=== PATIENT | female | born 1965 | race Caucasian/White ===

== ENCOUNTER → 2017-04-11 | Outpatient (CLI) | payer OTHER ==
--- NOTE | 2017-04-11 16:36 | DIAGNOSTIC IMAGING REPORT ---
MRI LUMBAR SPINE W/O CONTRAST CLINICAL HISTORY: Back pain x6 months. FAMILY HISTORY OF MALIGNANCY. TECHNIQUE: Sagittal and axial T1, T2 and STIR images were obtained. COMPARISON STUDY: No previous studies for comparison. OBSERVATIONS: The vertebral bodies and posterior elements appear intact. There is no abnormal bony signal present to suggest a marrow replacement process. L1-2: No disc protrusions or extrusions. No evidence of spinal canal or neural foraminal compromise. L2-3: No disc protrusions or extrusions. No evidence of spinal canal or neural foraminal compromise. L3-4: No disc protrusions or extrusions. No evidence of spinal canal or neural foraminal compromise. L4-5: No disc protrusions or extrusions. No evidence of spinal canal or neural foraminal compromise. L5-S1: No disc protrusions or extrusions. No evidence of spinal canal or neural foraminal compromise. The conus medullaris and cauda equina appear normal. IMPRESSION: Normal MRI of the lumbar spine for age Electronically signed by: Ghulam Mckeon M.D. 04/11/2017 4:35 PM Dictated Date/Time: 04/11/2017 4:32 PM
== END | disposition home or self-care (01) ==
LOC: C.MRIBC 15:01
PROVIDERS: ATTEND Physician Assistant
DX: Z80.9 Family history of malignant neoplasm, unspecified (principal); M54.5 Low back pain

== ENCOUNTER → 2017-05-01 | Outpatient (CLI) | payer OTHER ==
--- NOTE | 2017-05-01 09:08 | DIAGNOSTIC IMAGING REPORT ---
ULTRASOUND OF THE PELVIS CLINICAL HISTORY: Abdominal bloating. COMPARISON STUDY: No priors. TECHNIQUE: Real-time, grayscale, and color flow sonography of the pelvis is performed both transabdominally and endovaginally. Images are reviewed in the transverse and longitudinal planes. FINDINGS: Uterus: The uterus is normal in size and echotexture, measuring 8.0 x 3.3 x 4.2 cm. Small fibroids are noted. The largest is within the posterior body and measures up to 1.4 cm. Endometrium: The endometrium is normal in appearance, and the endometrial stripe is normal in thickness measuring up to 0.3 cm. Ovaries: The ovaries are normal in size and morphology. The right ovary measures 1.4 x 0.7 x 1.6 cm and the left ovary measures 2.0 x 1.5 x 2.4 cm. A follicle is noted on the left. Normal Doppler waveforms are shown within both ovaries. Pelvis: There is trace free fluid in the cul-de-sac. No concerning adnexal lesion is seen. IMPRESSION: 1. No acute sonographic abnormality is identified in the pelvis. 2. Small uterine fibroids are incidentally noted. 3. Trace free fluid in the cul-de-sac is likely within physiologic limits. Electronically signed by: Christopher Martinez M.D. 05/01/2017 9:07 AM Dictated Date/Time: 05/01/2017 9:05 AM
--- NOTE | 2017-05-01 09:31 | DIAGNOSTIC IMAGING REPORT ---
L-SPINE MIN 4 VIEWS ROUTINE CLINICAL HISTORY: M54.9 Back pain COMPARISON STUDY: MRI dated 04/11/2017 FINDINGS: There is a minimal spinal curvature convex to the right. No fractures are visualized. There are no erosive or destructive changes. The disc space heights appear relatively well preserved for age. IMPRESSION: No significant conventional radiographic abnormalities Electronically signed by: Ghulam Mckeon M.D. 05/01/2017 9:30 AM Dictated Date/Time: 05/01/2017 9:30 AM
[2017-05-01 10:35] LABS: BASO % 0.7 %; BASO ABS # 0.03 K/uL (0-0.2); COMPLETE YES; EOS % 1.5 %; HEMATOCRIT 37.3 % (37-47); LYMPH % 32.1 %; LYMPH ABS # 1.45 K/uL (1.2-3.4); MEAN CELL VOLUME 94.2 fL (80-100); MEAN CORPUSCULAR HEMOGLOBIN 32.8 pg (25-34); MEAN CORPUSCULAR HGB CONC 34.9 g/dl (32-36); MEAN PLATELET VOLUME 10.2 fL (7.4-10.4); MONO % 8.8 %; NEUT % 56.9 %; PLATELET COUNT 239 K/uL (130-400); RED BLOOD COUNT 3.96 M/uL (4.2-5.4); WHITE BLOOD COUNT 4.52 K/uL (4.8-10.8)
[2017-05-01 11:03] LABS: BLOOD UREA NITROGEN 10 mg/dl (7-18); BUN/CREATININE RATIO 16.1 (10-20); CREATININE 0.63 mg/dl (0.60-1.20); GLUCOSE 89 mg/dl (70-99)
[2017-05-01 11:04] LABS: ALT/SGPT 27 U/L (12-78); CALCIUM 8.8 mg/dl (8.5-10.1); CARBON DIOXIDE 31 mmol/L (21-32); CHLORIDE 106 mmol/L (98-107); SODIUM 140 mmol/L (136-145)
[2017-05-01 11:15] LABS: ALB/GLOB RATIO 1.2 (0.9-2); ALKALINE PHOSPHATASE 56 U/L (45-117); AST/SGOT 15 U/L (15-37)
== END | disposition home or self-care (01) ==
LOC: C.ULTRBC 08:05
PROVIDERS: ATTEND Physician Assistant
DX: M54.9 Dorsalgia, unspecified (principal); R14.0 Abdominal distension (gaseous)

== ENCOUNTER → 2017-05-01 | Outpatient (CLI) | payer OTHER ==
[~2017-05-01] MED LIST: OPTIRAY 320 IV PRN
--- NOTE | 2017-05-01 14:51 | DIAGNOSTIC IMAGING REPORT ---
ABD/PELVIS IV AND ORAL CONT HISTORY: 51 years-old Female AB BLOATING acute back pain with abdominal bloating COMPARISON: Pelvic ultrasound 05/01/2017 TECHNIQUE: Multiple axial CT images of the abdomen and pelvis were obtained following the intravenous administration of 119 mL Optiray 320. Oral contrast also administered. A dose lowering technique was used consistent with the principals of SAEID. FINDINGS: Minimal dependent bibasilar atelectasis. No pneumoperitoneum identified. The imaged inferior cardiac chambers are unremarkable. The liver, gallbladder, pancreas, spleen and adrenal glands are within normal limits. Mild intrahepatic or ductal dilation is suggested with pancreatic duct measuring the upper limits of normal at 2.6 cm. No obstructing stone or lesion identified. Common bile duct appears normal. 3 mm low attenuating lesion of the right hepatic lobe is too small to characterize, however suggests cyst. Subcentimeter low attenuating lesion of the superior pole left kidney is seen, 4 mm which is too small to characterize or suggests cyst. No renal calculi or hydronephrosis. Urinary bladder is partially collapsed. Uterus and adnexa are unremarkable. Mild atherosclerotic plaquing of the abdominal aorta. No bulky adenopathy. There is no bowel obstruction. No focal bowel wall thickening. Scattered colonic diverticula without diverticulitis. The appendix appears normal. Small fat filled periumbilical hernia is noted, diastases 1.4 cm. The bones appear intact. IMPRESSION: 1. Mild prominence of the intrahepatic ducts and pancreatic duct with normal appearance of the common bile duct. No obstructing stone or lesion identified. Correlate with biliary function tests. 2. Mild colonic diverticulosis without diverticulitis. 3. Normal appearance of the appendix. The above report was generated using voice recognition software. It may contain grammatical, syntax or spelling errors. Electronically signed by: Alejandro Chisholm M.D. 05/01/2017 2:50 PM Dictated Date/Time: 05/01/2017 2:43 PM
== END | disposition home or self-care (01) ==
LOC: C.CTS 04-27 14:13
PROVIDERS: ATTEND Physician Assistant
DX: R14.0 Abdominal distension (gaseous) (principal); R93.2 Abnormal findings on diagnostic imaging of liver and biliary tract; K57.30 Diverticulosis of large intestine without perforation or abscess without bleeding

== ENCOUNTER → 2017-05-16 | Outpatient (CLI) | payer OTHER ==
--- NOTE | 2017-05-16 08:00 | DIAGNOSTIC IMAGING REPORT ---
MRCP HISTORY: R14.0 Abdominal bloating K86.89 Pancreatic duct dilated [id number] TECHNIQUE: MRCP of the abdomen was performed without the use of intravenous contrast. COMPARISON STUDY: Abdomen and pelvis CT 05/01/2017. FINDINGS: The lung bases are clear. There is a 2 mm T2 hyperintense lesion within the left hepatic lobe and a 4 mm T2 hyperintense lesion within the upper pole the left kidney. These likely represent small cysts. The spleen, adrenal glands, pancreas, gallbladder, and right kidney are unremarkable. There is a left retroaortic renal vein. No retroperitoneal lymphadenopathy. Normal caliber abdominal aorta. No gallstones. The intrahepatic bile ducts demonstrate a few areas of mild stricturing with interposed areas of mild dilatation. Common bile duct is normal in caliber measuring up to 3 mm. No filling defects seen within the common bile duct. The main pancreatic duct is also normal in caliber. IMPRESSION: 1. Abnormal appearance to the central intrahepatic bile ducts which demonstrate alternating areas of mild dilatation and stricturing. This could be due to a remote history of cholangitis or primary sclerosing cholangitis . Clinical correlation recommended. 2. Normal caliber common bile duct. No filling defects. The pancreatic duct is also normal in course and caliber. Electronically signed by: Alfredito Contreras M.D. 05/16/2017 7:58 AM Dictated Date/Time: 05/16/2017 7:49 AM
== END | disposition home or self-care (01) ==
LOC: C.MRIBC 07:01
PROVIDERS: ATTEND Physician Assistant
DX: K86.89 Other specified diseases of pancreas (principal); R14.0 Abdominal distension (gaseous)